=== PATIENT | male | born 1975 | race Caucasian/White ===

== ENCOUNTER 2021-11-23 21:22 | Emergency (ER) | payer SELFPAY ==
[2021-11-23 22:16] VITALS: BP 116/76; PULSE 53; RESP 16; TEMP 36.2; O2SAT 97; BMI 25.0
--- OUTSIDE RECORDS SUMMARY | 2021-11-24 02:05 | XMS_ITS | Clinical Summary ---
:1975 Author Organization [employer] [facility] Address [place] [address] Care Team Providers Name Role Phone [facility] Primary Care Provider Allergies Not on File Medications Not on file Active Problems Not on file Immunizations Name Administration Dates Next Due AMB Influenza, IIV4 PF (=>6 mos Flulaval,Fluzone 11/14/2017 Fluarix)(Flu Clinic Only) Social History Tobacco Use Types Packs/Day Years Used Date Never Assessed Sex Assigned at Date Recorded Not on file Plan of Treatment Not on file Results Not on filefrom Last 3 Months Insurance Payer Benefit Plan / Subscriber ID Effective Dates Phone Addre ss Type Group [employer] HP [id number] 2016-Present [address] [place] [address] Care Teams 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
--- NOTE | 2021-11-24 02:31 | ED.GENADULT ---
HPI - General Adult General Time Seen by Provider: 01:34 Date Seen: 11/24/21 Chief complaint: Extremity Pain/Injury, Upper Stated complaint: rt index finger has numbness Time Seen by Provider: 11/24/21 02:31 Source: patient Mode of arrival: ambulatory Limitations: no limitations History of Present Illness HPI narrative: 46-year-old right-handed male who comes in with a splinter in his right hand. This happened yesterday morning. He was unable to remove the splinter in his noted some numbness in his right index finger, decided come the emergency department. Tetanus is up-to-date. Related Data Home Medications Medication Instructions Recorded Confirmed dextroamphetamine-amphetamine 10 10 mg PO DAILY 11/23/21 11/23/21 mg tablet (Adderall) lisinopril 10 mg tablet 10 mg PO DAILY 11/23/21 11/23/21 Allergies Allergy/AdvReac Type Severity Reaction Status Date / Time No Known Drug Allergies Allergy Verified 11/23/21 22:21 Review of Systems Status of ROS: Reports: 10 or more systems reviewed and unremarkable except as noted in History and below Exam Narrative: Exam Narrative: General: well nourished , NAD Head: Atraumatic and normocephalic ENT: External ears and external nose are normal Eyes: Conjunctiva clear, pupils are equal reactive, external ocular motions are intact Neck: Full spontaneous range of motion of the neck Lungs: No respiratory distress Musculoskeletal: Puncture wound of the right hand palmar surface just lateral to the index metacarpal Neurologic: No gross focal neurologic deficits Skin: No rashes Psych: Mood and affect are appropriate Const: Vital Signs, click to edit/add: Vital Signs - 24 hr 11/23/21 22:16 Temperature 97.1 F L Pulse Rate [Left P ulse Oximeter] 53 L Respiratory Rate 16 Blood Pressure [Ri ght Upper Arm] 116/76 Pulse Oximetry 97 Oxygen Delivery Me thod Room Air Documenting provider has reviewed patient's vital signs: yes Course Course Hospital Course: Patient seen and examined, prior records reviewed. Patient with a puncture wound right hand with foreign body. Area was prepped with Hibiclens. Lidocaine 1% was injected along the tract of the foreign body. An 11 blade was used to make an incision over the foreign body and this was removed with splinter forceps. Wash with soap and water. Patient tolerated this well. Vital Signs Vital signs: Initial Vital Signs Temperature 97.1 F L 11/23/21 22:16 Temperature Source Temporal Artery Scan 11/23/21 22:16 Pulse Rate 53 L 11/23/21 22:16 Pulse Rhythm 11/23/21 22:16 Respiratory Rate 16 11/23/21 22:16 Blood Pressure 116/76 11/23/21 22:16 Blood Pressure Mean 89 11/23/21 22:16 Blood Pressure Position Sitting 11/23/21 22:16 Pulse Oximetry 97 11/23/21 22:16 Oxygen Delivery Method 11/23/21 22:16 Vital Signs Temperature 97.1 F L 11/23/21 22:16 Pulse Rate 53 L 11/23/21 22:16 Respiratory Rate 16 11/23/21 22:16 Blood Pressure 116/76 11/23/21 22:16 Pulse Oximetry 97 11/23/21 22:16 Oxygen Delivery Method 11/23/21 22:16 Temperature 97.1 F L 11/23/21 22:16 Pulse Rate 53 L 11/23/21 22:16 Respiratory Rate 16 11/23/21 22:16 Blood Pressure 116/76 11/23/21 22:16 Pulse Oximetry 97 11/23/21 22:16 Oxygen Delivery Method 11/23/21 22:16 Medical Decision Making Medical Records Medical records reviewed: Yes I reviewed the patient's medical records Lab Data Lab results reviewed: Yes I reviewed the patient's lab results Discharge Plan Discharge Clinical Impression: Puncture wound of right hand with foreign body Patient Disposition: Home, Self-Care Condition: Improved Instructions: Puncture Wound (ED) Additional Instructions: Wash gently twice daily Tylenol or ibuprofen for pain. Watch for signs of infection including redness or drainage. Take antibiotics as prescribed Activity Level: No Restrictions Discharge Diet: Regular Prescriptions: No Action lisinopril 10 mg tablet 10 mg PO DAILY dextroamphetamine-amphetamine [Adderall] 10 mg tablet 10 mg PO DAILY Follow Up/Referrals: Provider,Not a Local [Primary Care Provider] - Stand Alone Forms: MyHealth Info Instructions Procedures Foreign Body Removal Time Out Performed: yes Site: right and hand Description of foreign body: other (Splinter) Method: Incision Sedation/Analgesia: none and other (Lidocaine 1% was injected locally at the puncture wound) Technique: manual removal, removal with forceps and incision made to facilitate removal Confirmed by:: direct visualization Complications: none Neurovascular: no change from pre-procedure
[2021-11-24 02:51] VITALS: PULSE 68; RESP 16; O2SAT 98
== END 2021-11-24 02:54 | disposition home or self-care (01) ==
PROVIDERS: Emergency Provider Family Medicine
DX: S61.441A Puncture wound with foreign body of right hand, initial encounter (principal)
CPT/HCPCS: 10120; 99283